=== PATIENT | female | born 1940 | race Caucasian/White ===

== ENCOUNTER 2017-05-14 19:15 | Emergency (ER) | payer OTHER, BC ==
[~2017-05-14] VITALS: Ht 167.6 cm; Wt 66.3 kg
[~2017-05-14 19:15] MED LIST: LEVAQUIN500 MG PO; LIDODERM 5% P1 PATCH TD; PERCOCET 5/31 TABLET PO
[2017-05-14 21:00] LABS: EOSINOPHIL (%) 0.5 % (0-5); HEMATOCRIT 36.6 % (36.0-46.0); IMMATURE GRANULOCYTE (%) 0.2 % (0.0-0.7); INSTRUMENT ABS NEUTROPHIL CT 4.7 K/uL; LYMPHOCYTE COUNT 0.9 K/uL (1.0-2.8); MCH 28.7 PG (29.0-34.0); MCHC 33.3 G/DL (30.0-36.0); MCV 86.1 FL (83-99); MEAN PLAT.VOLUME 9.7 uM^3 (9.5-12.4); MONOCYTE (%) 5.3 % (3-12); MONOCYTE COUNT 0.3 K/uL (0-0.8); NEUTROPHIL (%) 78.5 % (45-76); NEUTROPHIL COUNT 4.7 K/uL (1.8-6.4); PLATELET COUNT 186 K/uL (156-360); RBC DIS.WIDTH-CV 13.1 % (11.8-14.6); RBC DIS.WIDTH-SD 40.8 % (39-53); RED BLOOD COUNT 4.25 M/uL (3.80-5.20)
[2017-05-14 21:05] LABS: INTER. NORMALIZED RATIO 1.1; PROTHROMBIN TIME 12.6 SEC (10.2-12.9)
[2017-05-14 21:13] LABS: CHLORIDE 112 mEq/L (99-109); POTASSIUM 3.1 mEq/L (3.7-5.4); SODIUM 143 mEq/L (136-147)
[2017-05-14 21:15] LABS: GLUCOSE 102 mg/dL (70-99)
[2017-05-14 21:16] LABS: ANION GAP 9 MEQ/L (2-14)
[2017-05-14 21:17] LABS: TOTAL BILIRUBIN 0.4 mg/dL (0.0-1.0)
[2017-05-14 21:19] LABS: ALKALINE PHOSPHATASE 40 IU/L (3-129); GFR ESTIMATE (CALCULATED) > 59 mL/min/
[2017-05-14 21:20] LABS: UREA NITROGEN (BUN) 15 mg/dL (9-23)
[2017-05-14 21:21] LABS: DIRECT BILIRUBIN 0.2 mg/dL (0.0-0.3)
[2017-05-14 21:22] LABS: LIPASE 13 U/L (1.0-51.0)
[2017-05-14 21:23] LABS: TROP-I INTERPRETATION NEGATIVE; TROPONIN-I < 0.01 ng/mL (0.0-0.30)
[2017-05-14 22:17] LABS: ADD MIUA? YES; BILIRUBIN NEGATIVE; BLOOD NEGATIVE; COLOR YELLOW ((YELLOW)); GLUCOSE (STRIP) NEGATIVE; KETONES NEGATIVE; LEUKOCYTES MODERATE; NITRITE NEGATIVE; PROTEIN (STRIP) NEGATIVE; SPECIFIC GRAVITY 1.027 (1.000-1.030); UROBILINOGEN 0.2 MG/DL (0.2-1.0)
[2017-05-14 22:24] LABS: BACTERIA NONE SEEN /HPF; BUDDING YEAST 2+; EPITHELIAL CELLS NONE SEEN /HPF; MUCUS TRACE /LPF; UCUL ADDED? YES; UNCLASSIFIED CRYSTALS 3+ /HPF
[2017-05-14] MEDS ORDERED: KEFLEX500 MG PO (22:59)
[2017-05-15 00:37] VITALS: BP 146/100
== END 2017-05-15 00:37 | disposition home or self-care (01) ==
LOC: EME → EDBD 19:15 → EME 05-15 00:37
PROVIDERS: Emergency Medicine
DX: N39.0 Urinary tract infection, site not specified (principal); K57.30 Diverticulosis of large intestine without perforation or abscess without bleeding; Z86.73 Personal history of transient ischemic attack (TIA), and cerebral infarction without residual deficits; Z90.710 Acquired absence of both cervix and uterus
CPT/HCPCS: 74177; 80048; 80076; 81003; 83605; 83690; 83880; 84484; 85025; 85610; 85730; 87086; 99281; 99285; J2405; J7030